=== PATIENT | male | born 1975 | race Caucasian/White ===

== ENCOUNTER 2017-12-31 11:10 | Emergency (ER) | payer MEDICAID, SELFPAY ==
[2017-12-31 11:12] VITALS: BP 107/66; PULSE 107; RESP 18; TEMP 36.4; O2SAT 99; BMI 22.1
[2017-12-31 12:22] LABS: Absolute Lymphocyte Count 2.38 X10^3/ul (0.83-4.51); Absolute Neutrophil Count 8.3 X10^3/uL (2.0-7.7); Basophil# 0.07 X10^3/uL; Basophil% 0.6 % (0-1); Eosinophil# 0.27 X10^3/uL; Eosinophils% 2.3 % (0-5); Hematocrit 46.6 % (40-54); Hemoglobin 15.8 g/dl (13.0-16.5); Lymphocyte # 2.38 X10^3/ul (4.0); Lymphocyte % 20.2 % (19-41); Mean Corp Hgb Conc 33.9 g/gl (32-36); Mean Corpuscular Hgb 31.5 pg (27.0-32.0); Mean Platelet Vol. 9.2 fl (6.2-12.0); Monocyte# 0.69 X10^3/uL; Monocyte% 5.9 % (0-10); Neutrophil # 8.28 X10^3/uL (2.7-7.7); Neutrophil % 70.3 % (47-70); Platelet Count 300 K/mm3 (150-450); RBC Distribution Width CV 13.4 % (11.6-14.6); RBC Distribution Width SD 44.1 fl (35.1-43.9); Red Blood Count 5.01 M/mm3 (4.6-6.2); White Blood Count 11.8 K/mm3 (4.4-11.0)
[2017-12-31 12:27] LABS: POSITIVE COUNT NO; POSITIVE DIFFERENTIAL NO; POSITIVE MORPHOLOGY NO
[2017-12-31 12:39] LABS: ALB/GLOB Ratio 0.7 RATIO (0.9-2.4); AST(SGOT) 53 U/L (15-37); Alanine Aminotransfer ALT/SGPT 150 U/L (16-61); Albumin, Serum 3.1 g/dL (3.2-5.0); Alkaline Phosphatase 104 U/L (45-117); Anion Gap 7 (5-15); BUN 11 mg/dL (7-18); BUN/Creat Ratio 11.1 RATIO (10-20); Chloride 104 mmol/L (98-107); Creatinine, Serum 0.99 mg/dL (0.70-1.30); EST Glomerular Filtration Rate 87 mL/min (>60); Est Glom Filt Rate - Afr Amer 106 mL/min (>60); Estimated Creatinine Clearance 94.32 ml/min; Globulin 4.4 g/dL (2.2-4.2); Glucose 101 mg/dL (74-106); Potassium 3.8 mmol/L (3.5-5.1); Protein, Total 7.5 g/dL (6.4-8.2); Sodium Level 142 mmol/L (136-145)
--- NOTE | 2017-12-31 13:30 | ED.VISSUMM ---
- ER Visit Summary Date of Service: 12/31/17 Chief Complaint: Left forearm abscess History of Present Illness: The patient is a 42 M presents with a left forearm abscess after IV drug abuse. No chest pain fever or chills no diaphoresis no recent weight loss. No vision changes headache. He does endorse itchy rash on his abdomen that started a few days ago. Physical Examination: Patient appears in some distress. He does not appear toxic. He is afebrile. His heart is regular, no murmur. Lungs are clear bilaterally. Eyes are clear. No lesions on the fingertips or toes. He has a 2 cm deep antecubital abscess of his left forearm. Very slight surrounding cellulitis. No lymphangitic streaking. He has a blanching raised erythematous rash with a few linear streaks on his abdomen which is consistent with contact dermatitis. Emergency Department Course and Treatment: Count is unremarkable. Rest of the blood work is normal. There are no signs or symptoms of endocarditis or systemic disease. Incision and drainage was done at the bedside, ultrasound-guided. Pus was expectorated and wound was packed since it was deep. I will start antibiotics and discharge him, if he worsens he needs to return and he understands this. At this time he does not wish to be admitted he has a place to get inpatient detox at another facility. He does have some contact dermatitis although I am reluctant to give him steroids since he has an infection. Disposition: Discharged in stable condition with the plan of getting inpatient rehab at another facility. Impression: Left antecubital abscess Contact dermatitis This note was generated with [employer] dictation software. It may contain incorrect words, spelling, and punctuation that were not noted in review of the chart prior to signing ED Disposition - Plan for ED Patient: Disposition: Home or Assisted Living Chief Complaint: Rash Instructions: ED Abscess IandD Prescriptions: Clindamycin [Cleocin] 300 mg PO 4X/DAY 10 Days #80 cap Referrals: Care Physician,No Primary [Primary Care Provider] - 1 Day Additional Instructions: Make sure you get into a rehab facility. Make sure taking antibiotics. If your wound gets worse return to the emergency department right away. If you have fever or chills return right away.
[2017-12-31] MEDS: Ketorolac 30 MG/ML Syringe 15 MG IV (13:41)
[2017-12-31] MEDS: Clindamycin HCl 150 MG Capsule 300 MG PO (13:41)
[2017-12-31 13:52] VITALS: PULSE 100; RESP 16; O2SAT 99
== END 2017-12-31 13:53 | disposition home or self-care (01) ==
PROVIDERS: Emergency Provider Emergency Medicine
DX: L02.414 Cutaneous abscess of left upper limb (principal); L25.9 Unspecified contact dermatitis, unspecified cause; F19.10 Other psychoactive substance abuse, uncomplicated
CPT/HCPCS: 80053; 85025; 99284; A4216

== ENCOUNTER 2018-01-17 11:47 | Emergency (ER) | payer MEDICAID, SELFPAY ==
[2018-01-17] VITALS (7 sets, daily range): BP systolic 112–135; BP diastolic 70–80; PULSE 89–103; RESP 14–18; TEMP 36.8; O2SAT 96–99; BMI 23.6
--- NOTE | 2018-01-17 11:51 | ED.RN ---
PT STATES BIPOLAR AND PARANOID SCHIZOPHRENIA. HAS BEEN OFF MEDS FOR TOO LONG
--- NOTE | 2018-01-17 12:10 | NURSING ---
CALLED CRISIS TO LET [facility] KNOW PATIENT IS HERE
--- NOTE | 2018-01-17 12:29 | NURSING ---
MATTY, CRISIS, CALLED. HE NEEDS TO HAVE AN EKG FOR PATIENT TO BE SENT TO [facility]. NURSE AWARE
--- NOTE | 2018-01-17 12:33 | NURSING ---
NO OLD EKGS
--- NOTE | 2018-01-17 12:58 | EKG12_ITS ---
Test Reason : DYSRHYTHMIA Blood Pressure : / mmHG Vent. Rate : 082 BPM Atrial Rate : 082 BPM P-R Int : 148 ms QRS Dur : 084 ms QT Int : 368 ms P-R-T Axes : 015 096 053 degrees QTc Int : 429 ms Normal sinus rhythm Normal ECG Confirmed by TRENT SON, BLAIR ([id number]), school photograph editor WILLA VASQUEZ ([id number] on 01/22/2018 2:47:09 PM Referred By: ROBERTA Confirmed By:BLAIR NEWMAN MD
[2018-01-17 13:08] LABS: Absolute Lymphocyte Count 2.84 X10^3/ul (0.83-4.51); Absolute Neutrophil Count 6.6 X10^3/uL (2.0-7.7); Basophil# 0.06 X10^3/uL; Basophil% 0.6 % (0-1); Eosinophil# 0.21 X10^3/uL; Hematocrit 47.3 % (40-54); Hemoglobin 15.9 g/dl (13.0-16.5); Lymphocyte # 2.84 X10^3/ul (4.0); Lymphocyte % 26.5 % (19-41); Mean Corp Hgb Conc 33.6 g/gl (32-36); Mean Corpuscular Hgb 32.6 pg (27.0-32.0); Mean Corpuscular Volume 97.1 fL (80-94); Mean Platelet Vol. 9.3 fl (6.2-12.0); Monocyte% 8.4 % (0-10); Neutrophil # 6.64 X10^3/uL (2.7-7.7); Platelet Count 261 K/mm3 (150-450); Red Blood Count 4.87 M/mm3 (4.6-6.2); White Blood Count 10.7 K/mm3 (4.4-11.0)
[2018-01-17 13:09] LABS: POSITIVE COUNT NO; POSITIVE DIFFERENTIAL NO; POSITIVE MORPHOLOGY NO
[2018-01-17 13:12] LABS: Amphetamine Urine VISTA NEGATIVE (<1000 ng/mL); Barbiturate Urine VISTA NEGATIVE (< 200 ng/mL); Benzodiazepine Urine VISTA NEGATIVE (< 200 ng/mL); Cocaine Urine VISTA NEGATIVE (< 300 ng/mL); Ecstacy Urine VISTA NEGATIVE (< 500 ng/mL); Methadone Urine VISTA NEGATIVE (< 300 ng/mL); PCP Urine VISTA NEGATIVE (< 25 ng/mL); THC Urine VISTA POSITIVE (< 50 ng/mL); Vista UDS pH Range 6
[2018-01-17 13:19] LABS: Anion Gap 6 (5-15); BUN 14 mg/dL (7-18); BUN/Creat Ratio 14.6 RATIO (10-20); Calcium,Total 8.9 mg/dL (8.5-10.1); Chloride 102 mmol/L (98-107); Creatinine, Serum 0.96 mg/dL (0.70-1.30); EST Glomerular Filtration Rate 90 mL/min (>60); Est Glom Filt Rate - Afr Amer 109 mL/min (>60); Estimated Creatinine Clearance 101.39 ml/min; Glucose 86 mg/dL (74-106); Potassium 4.3 mmol/L (3.5-5.1); Sodium Level 137 mmol/L (136-145)
--- NOTE | 2018-01-17 13:48 | NURSING ---
CHAY, CRISIS, HERE
--- NOTE | 2018-01-17 14:56 | ED.VISSUMM ---
- ER Visit Summary Date of Service: 01/17/18 Chief Complaint: Depression, drug dependency and suicidal ideation with attempt History of Present Illness: The patient is a 42 M who was seen by the licensed therapist at the crisis center and sent to the emergency room for medical clearance for inpatient psychiatric care. He recently moved from [place] to [place], 3-4 weeks ago. He states he is depressed. He had increased symptoms of depression the last 3 weeks. Attempted overdose 5 days ago. He stated I was unlikely and did not . Last attempt at suicide was 1 year ago by overdose and he was hospitalized. He has been hospitalized 4 times since the age of 14. He has been twice. He does not see his children from second marriage secondary to I am a bad father and messed up my son . Patient admits to heroin use and methamphetamine use. He also smokes and drinks. He is presently unemployed. He states is under too much stress and cannot work. He states he has no hope. Review of systems is negative other than depression, suicidal thoughts and ideation with attempt. Physical Examination: Vital signs are normal. Patient has a well-healed craniotomy scar secondary to prior trauma. Pupils equal round reactive paradoxic muscle intact. Sclerae anicteric. Conjunctive is not injected. TMs normal. Nares patent. Uvula midline. Posterior pharynx without erythema or exudate. neck supple. Heart is regular without murmur, gallop or rub. S1 and S2 are normal. Lungs are clear to auscultation with good movement of air bilaterally. Abdomen soft nontender. Patient is alert and oriented ?3. Motor is 5 over 5. Sensory is intact. DTRs are symmetric with no clonus or Babinski sign. Cranial 2 through 12 are intact. Cerebellar testing is normal. Extremity exam is remarkable for multiple track sellers without evidence of infection. Test Results: CBC, BMP are normal. Ethanol negative. Tox positive for cannabis. EKG sinus rhythm rate of 82 and is normal. Emergency Department Course and Treatment: Medical clearance for hospitalization at [place] since he has dual diagnosis of depression with suicidal ideation attempt and drug dependency Treatment Plan: To transfer to facility to care for his affect of disorder as well as his drug dependency Disposition: The license nephrology social worker crisis has seen Mr. Leal and is in the process of making arrangements for transfer. [place] slip was completed and signed. Impression: 1. Major depression with suicidal ideation attempt 2. Drug dependency, heroin and methamphetamine This note was generated with [employer] dictation software. It may contain incorrect words, spelling, and punctuation that were not noted in review of the chart prior to signing ED Disposition - Plan for ED Patient: Chief Complaint: Suicidal Referrals: Care Physician,No Primary [Primary Care Provider] -
--- NOTE | 2018-01-17 15:00 | ED.DCSUM_ITS ---
- ER Visit Summary Date of Service: 01/17/18 Chief Complaint: Depression, drug dependency and suicidal ideation with attempt History of Present Illness: The patient is a 42 M who was seen by the licensed nurse practitioner at the crisis center and sent to the emergency room for medical clearance for inpatient psychiatric care. He recently moved from [place] to [place], 3-4 weeks ago. He states he is depressed. He had increased symptoms of depression the last 3 weeks. Attempted overdose 5 days ago. He stated I was unlikely and did not . Last attempt at suicide was 1 year ago by overdose and he was hospitalized. He has been hospitalized 4 times since the age of 14. He has been twice. He does not see his children from second marriage secondary to I am a bad father and messed up my son . Patient admits to heroin use and methamphetamine use. He also smokes and drinks. He is presently unemployed. He states is under too much stress and cannot work. He states he has no hope. Review of systems is negative other than depression, suicidal thoughts and ideation with attempt. Physical Examination: Vital signs are normal. Patient has a well-healed craniotomy scar secondary to prior trauma. Pupils equal round reactive paradoxic muscle intact. Sclerae anicteric. Conjunctive is not injected. TMs normal. Nares patent. Uvula midline. Posterior pharynx without erythema or exudate. neck supple. Heart is regular without murmur, gallop or rub. S1 and S2 are normal. Lungs are clear to auscultation with good movement of air bilaterally. Abdomen soft nontender. Patient is alert and oriented ?3. Motor is 5 over 5. Sensory is intact. DTRs are symmetric with no clonus or Babinski sign. Cranial 2 through 12 are intact. Cerebellar testing is normal. Extremity exam is remarkable for multiple track sellers without evidence of infection. Test Results: CBC, BMP are normal. Ethanol negative. Tox positive for cannabis. EKG sinus rhythm rate of 82 and is normal. Emergency Department Course and Treatment: Medical clearance for hospitalization at [facility] since he has dual diagnosis of depression with suicidal ideation attempt and drug dependency Treatment Plan: To transfer to facility to care for his affect of disorder as well as his drug dependency Disposition: The license manager social services crisis has seen Mr. Leal and is in the process of making arrangements for transfer. [place] slip was completed and signed. Impression: 1. Major depression with suicidal ideation attempt 2. Drug dependency, heroin and methamphetamine This note was generated with [employer] dictation software. It may contain incorrect words, spelling, and punctuation that were not noted in review of the chart prior to signing ED Disposition - Plan for ED Patient: Chief Complaint: Suicidal Referrals: Care Physician,No Primary [Primary Care Provider] -
[2018-01-17] MEDS: LORazepam 1 MG Tablet PO (17:37)
--- NOTE | 2018-01-17 17:48 | NURSING ---
WAITING ON [facility] FOR ACCEPTANCE
--- NOTE | 2018-01-17 18:07 | NURSING ---
[facility] CALLED. THEY ARE STILL WORKING ON PATIENT'S ADMISSION
--- NOTE | 2018-01-17 18:13 | NURSING ---
ACCEPTED AT [facility]
[2018-01-17] MEDS: hydrOXYzine PAM 25 MG Capsule 50 MG PO (18:42)
== END 2018-01-17 19:16 ==
PROVIDERS: Emergency Provider Emergency Medicine
DX: F32.9 Major depressive disorder, single episode, unspecified (principal); R45.851 Suicidal ideations; F15.20 Other stimulant dependence, uncomplicated; F11.20 Opioid dependence, uncomplicated; F12.90 Cannabis use, unspecified, uncomplicated; Z91.5 Personal history of self-harm; F20.9 Schizophrenia, unspecified; F17.200 Nicotine dependence, unspecified, uncomplicated
CPT/HCPCS: 80048; 80307; 80320; 85025; 93005; 99285; G0480